=== PATIENT | male | born 1975 | race African-American/Black ===

== ENCOUNTER 2018-11-16 01:44 | Emergency (ER) | payer BC ==
[~2018-11-16] VITALS: Ht 203.2 cm; Wt 136.4 kg
[~2018-11-16 01:44] MED LIST: BACTRIM DS TABL1 TAB PO; NUPRIN200 MG PO; PERCOCET 10/3251 TA1 PO; ZOVIRAX800 MG PO
[2018-11-16] MEDS ORDERED: NAPROSYN500 MG PO (02:18)
[2018-11-16] MEDS ORDERED: CLEOCIN HCL300 MG PO (02:18)
== END 2018-11-16 02:42 | disposition home or self-care (01) ==
LOC: D.ER 01:44
DX: K02.9 Dental caries, unspecified (principal); K05.10 Chronic gingivitis, plaque induced